=== PATIENT | female | born 1985 | race Caucasian/White ===

== ENCOUNTER 2020-08-08 10:04 | Emergency (ER) | payer MEDICAID ==
[~2020-08-08] VITALS: Ht 170.2 cm; Wt 75.0 kg
[2020-08-08] MEDS ORDERED: PHENAZOPYRIDINE HCL 100 MG TABLET PO ONE (10:45)
[2020-08-08] MEDS ORDERED: LIDOCAINE/PF 1% 2 ML VIAL IM ONE (10:45)
[2020-08-08] MEDS ORDERED: CefTRIAXone SODIUM 1 GM/VIAL IM ONE (10:45)
[2020-08-08 11:14] LABS: BASOPHILS % (AUTO) 0.6 % (0.0-2.0); EOSINOPHILS % (AUTO) 2.2 % (1.0-6.0); HEMATOCRIT 36.2 % (36-46); HEMOGLOBIN 12.3 g/dL (12.0-16.0); LYMPHOCYTES # (AUTO) 1.1 K/uL (1.0-4.8); LYMPHOCYTES % (AUTO) 17.7 % (22.0-44.0); MEAN CORPUSCULAR HEMOGLOBIN 27.6 pg (26.0-34.0); MEAN CORPUSCULAR HGB CONC 33.9 G/dL (31.0-37.0); MEAN CORPUSCULAR VOLUME 82 fL (80-100); MONOCYTES # (AUTO) 0.4 K/uL (0.1-1.0); MONOCYTES % (AUTO) 6.6 % (2.0-9.0); NEUTROPHILS # (AUTO) 4.7 K/uL (1.8-7.7); NEUTROPHILS % (AUTO) 72.9 % (40.0-70.0); PLATELET COUNT (AUTO) 168 K/uL (150-450); RED BLOOD CELL COUNT(AUTO) 4.44 MIL/uL (4.00-5.20); RED CELL DISTRIBUTION WIDTH 13.1 % (11.5-14.5)
[2020-08-08 11:30] LABS: ANION GAP 7 mmol/L (8-16); CALCIUM, TOTAL 8.7 mg/dL (8.8-10.5); CARBON DIOXIDE 30 mmol/L (22-29); CHLORIDE 102 mmol/L (98-107); CREATININE 0.67 mg/dL (0.60-1.30); GLOMERULAR FILTR. RATE CALC > 60 mL/min (>60); GLUCOSE,RANDOM 96 mg/dL (70-110); SODIUM SERUM 139 mmol/L (136-145); UREA NITROGEN, BLOOD 12 mg/dL (7-18)
[2020-08-08 11:31] LABS: APPEARANCE,URINE TURBID (CLEAR); GLUCOSE, URINE (UA) NEGATIVE (NEGATIVE); KETONES,URINE 15 mg/dL (NEGATIVE); LEUKOCYTE ESTERASE ,URINE LARGE (NEGATIVE); NITRATE,URINE POSITIVE (NEGATIVE); OCCULT BLOOD,URINE LARGE (NEGATIVE); PROTEIN,URINE SEE CONFIRM (NEGATIVE)
[2020-08-08 11:36] LABS: BILIRUBIN,URINE PRELIM. POSITIVE (NEGATIVE)
[2020-08-08 11:41] LABS: ALANINE AMINOTRANSFERASE 94 U/L (12-78); ALBUMIN 3.5 g/dL (3.4-5.0); ALKALINE PHOSPHATASE 77 U/L (46-116); ASPARTATE AMINOTRANSFERASE 66 U/L (15-37); BILIRUBIN,TOTAL 0.3 mg/dL (0.1-1.0); HCG,QUANTITATIVE < 1 mIU/mL (0-6); TOTAL PROTEIN, SERUM 6.8 g/dL (6.4-8.2)
[2020-08-08 11:45] LABS: SULFOSALICYLIC ACID,URINE 3+ (Negative)
[2020-08-08 11:48] LABS: BACTERIA,URINE Few /HPF (None Seen); RBC,URINE Full Field /HPF (0-2); SQUAMOUS EPITHELIAL CELL,UR Rare /LPF (None Seen); WBC,URINE 51-100 /HPF (0-5)
[2020-08-08 12:15] VITALS: BP 104/64
== END 2020-08-08 12:32 | disposition home or self-care (01) ==
LOC: EMS 10:08
DX: N30.90 Cystitis, unspecified without hematuria (principal); Z86.19 Personal history of other infectious and parasitic diseases; Z91.040 Latex allergy status
CPT/HCPCS: 36415; 80053; 81001; 84702; 85025; 87077; 87086; 96372; 99283; J0696; J3490

== ENCOUNTER 2021-03-01 05:09 | Emergency (ER) | payer MEDICAID ==
[~2021-03-01] VITALS: Ht 170.2 cm; Wt 75.0 kg
[2021-03-01 05:29] LABS: COVID AG,FIA SOURCE NASOPHARYNGEAL
[2021-03-01 05:35] LABS: APPEARANCE,URINE CLOUDY (CLEAR); GLUCOSE, URINE (UA) NEGATIVE (NEGATIVE); KETONES,URINE TRACE mg/dL (NEGATIVE); LEUKOCYTE ESTERASE ,URINE SMALL (NEGATIVE); NITRATE,URINE NEGATIVE (NEGATIVE); OCCULT BLOOD,URINE LARGE (NEGATIVE); PROTEIN,URINE SEE CONFIRM (NEGATIVE)
[2021-03-01 05:36] LABS: BILIRUBIN,URINE PRELIM. POSITIVE (NEGATIVE)
[2021-03-01 05:37] LABS: SULFOSALICYLIC ACID,URINE 2+ (Negative)
[2021-03-01 05:43] LABS: RBC,URINE Full Field /HPF (0-2)
[2021-03-01 05:44] LABS: BACTERIA,URINE Moderate /HPF (None Seen); WBC,URINE 51-100 /HPF (0-5)
[2021-03-01] MEDS ORDERED: CEPHALEXIN MONOHYDRATE 500 MG CAPSULE PO ONE (07:00)
[2021-03-01] MEDS ORDERED: PHENAZOPYRIDINE HCL 100 MG TABLET PO ONE (07:00)
[2021-03-01 08:12] VITALS: BP 115/76
== END 2021-03-01 07:20 | disposition home or self-care (01) ==
LOC: EMS 05:10
DX: U07.1 COVID-19 (principal); J45.909 Unspecified asthma, uncomplicated; F17.210 Nicotine dependence, cigarettes, uncomplicated; Z91.040 Latex allergy status
CPT/HCPCS: 81001; 87077; 87086; 87186; 87426; 99283; U0003; 81002